=== PATIENT | female | born 1995 | race Caucasian/White ===

== ENCOUNTER 2017-12-30 20:53 | Emergency (ER) | payer OTHER ==
[~2017-12-30] VITALS: Ht 157.5 cm; Wt 61.2 kg
[2017-12-30 20:58] VITALS: Ht 157.5 cm; Wt 61.2 kg
[2017-12-30 21:37] LABS: CALCIUM 8.3 mg/dL (8.5-10.1); CARBON DIOXIDE 25.5 mmol/L (21-32); CHLORIDE SERUM 109 mmol/L (98-107); CREATININE SERUM 0.8 mg/dL (0.6-1.0); GFR1 > 60 mL/min; GLUCOSE SERUM 90 mg/dL (74-106); POTASSIUM SERUM 3.2 mmol/L (3.5-5.1); SODIUM SERUM 141 mmol/L (136-145)
[2017-12-30 21:41] LABS: ALBUMIN 3.6 g/dL (3.4-5.0); ALKALINE PHOSPHATASE 123 U/L (46-116); ALT/SGPT 33 U/L (14-59); AST/SGOT 19 U/L (15-37); BASOPHIL % 0.5 % (0-2); BILIRUBIN TOTAL 0.19 mg/dL (0.20-1.00); PLATELET COUNT 197 x10^3mcL (130-400); RED CELL DISTRIBUTION WIDTH 12.6 % (11.5-14.5); TOTAL PROTEIN, SERUM 7.8 g/dL (6.4-8.2)
[2017-12-30 22:11] LABS: AMPHETAMINE QUAL UR NONE DETECTED (See below)
[2017-12-31 07:16] VITALS: BP 128/71
== END 2017-12-31 07:16 | disposition home or self-care (01) ==
LOC: ED 20:53
PROVIDERS: Emergency Medicine
DX: T65.91XA Toxic effect of unspecified substance, accidental (unintentional), initial encounter (principal); Y92.89 Other specified places as the place of occurrence of the external cause; F10.129 Alcohol abuse with intoxication, unspecified; R45.851 Suicidal ideations; J45.909 Unspecified asthma, uncomplicated; F32.9 Major depressive disorder, single episode, unspecified
CPT/HCPCS: G0480; J0500; J2405; J7030